=== PATIENT | female | born 1975 | race American Indian/Alaskan Native ===

== ENCOUNTER 2021-04-06 21:56 | Emergency (ER) | payer MEDICAID ==
[~2021-04-06] VITALS: Ht 170.2 cm; Wt 103.2 kg
[~2021-04-06 21:56] MED LIST: HYDR-4383 PO
[2021-04-06 23:46] LABS: URINE HCG NEGATIVE (NEG)
[2021-04-06 23:47] LABS: CLARITY,URINE CLOUDY (Clear); COLOR,URINE RED (Yellow)
[2021-04-06 23:47] LABS: BASOPHILS # (AUTO) 0.1 X10'3 (0-0.2); BASOPHILS % (AUTO) 0.7 % (0-1); EOSINOPHILS % (AUTO) 0.4 % (0-6); HEMATOCRIT 34.1 % (35.0-45.0); HEMOGLOBIN 11.6 g/dl (12.0-16.0); LYMPHOCYTES # (AUTO) 2.3 X10'3 (1.1-4.8); LYMPHOCYTES % (AUTO) 24.6 % (21-51); MEAN CORPUSCULAR HEMOGLOBIN 32.5 PG (27.0-31.0); MEAN CORPUSCULAR VOLUME 95.8 FL (78-98); MEAN PLATELET VOLUME 10.7 FL (7.4-10.4); MONOCYTES # (AUTO) 0.7 X10'3 (0-0.9); MONOCYTES % (AUTO) 7.5 % (2-12); NEUTROPHILS # (AUTO) 6.2 X10'3 (1.8-7.7); NEUTROPHILS % (AUTO) 66.8 % (42-75); PLATELET COUNT 218 X10'3 (140-440); RED BLOOD COUNT 3.56 X10'6 (4.20-5.60); WHITE BLOOD COUNT 9.2 X10'3 (4.5-11.0)
[2021-04-06 23:55] LABS: UA COLLECTION TYPE NON-SPECIFIED
[2021-04-06 23:57] LABS: BACTERIA,URINE NONE SEEN /HPF (Neg); RBC,URINE TNTC /HPF (0-2); SQUAMOUS EPITHELIAL CELL,UR FEW /LPF (FEW); WBC,URINE 0-4 /HPF (0-4)
[2021-04-07 00:03] LABS: ALANINE AMINOTRANSFERASE 37 U/L (12-78); ALBUMIN 3.5 G/DL (3.4-5.0); ALBUMIN/GLOBULIN RATIO 0.9 (1.1-1.5); ALKALINE PHOSPHATASE 70 IU/L (46-116); ANION GAP 14 (8-16); ASPARTATE AMINO TRANSFERASE 34 U/L (10-37); BILIRUBIN,TOTAL 0.6 MG/DL (0.1-1.0); BLOOD UREA NITROGEN 12 MG/DL (7-18); BUN/CREATININE RATIO 13.6 (6.6-38.0); CALCIUM 8.6 MG/DL (8.5-10.1); CHLORIDE 103 MMOL/L (99-107); CREATININE 0.88 MG/DL (0.40-0.90); GLUCOSE 102 MG/DL (70-104); POTASSIUM 3.2 MMOL/L (3.5-5.1); SODIUM 139 MMOL/L (135-145); TOTAL CARBON DIOXIDE 22.4 MMOL/L (24-32); TOTAL PROTEIN 7.4 G/DL (6.4-8.2); eGFR 69 ML/MIN
[2021-04-07] MEDS ORDERED: normal saline 1000ml 1,000 ML IV ONE (02:25)
[2021-04-07 02:54] LABS: D-DIMER 0.24 MG/L FEU (0-0.50)
[2021-04-07] MEDS ORDERED: NORE5TAB3 PO (03:07)
[2021-04-07 03:56] VITALS: BP 167/83
== END 2021-04-07 03:59 | disposition home or self-care (01) ==
LOC: ER 21:57
DX: N93.9 Abnormal uterine and vaginal bleeding, unspecified (principal); R42 Dizziness and giddiness; R06.02 Shortness of breath; R07.9 Chest pain, unspecified; F15.10 Other stimulant abuse, uncomplicated
CPT/HCPCS: 36415; 80053; 81001; 81025; 85025; 85379; 93005; 96360; 99285; J7030

== ENCOUNTER 2022-11-11 17:53 | Inpatient (IN) | payer MEDICAID ==
[~2022-11-11] VITALS: Ht 170.2 cm; Wt 102.0 kg
[~2022-11-11 17:53] MED LIST changes: +NORE5TAB3 PO
[2022-11-11 18:33] LABS: BASOPHILS % (AUTO) 0.3 % (0-1); EOSINOPHILS % (AUTO) 0.2 % (0-6); HEMATOCRIT 45.2 % (35.0-45.0); HEMOGLOBIN 15.4 g/dl (12.0-16.0); LYMPHOCYTES # (AUTO) 1.9 X10'3 (1.1-4.8); LYMPHOCYTES % (AUTO) 14.9 % (21-51); MEAN CORPUSCULAR HEMOGLOBIN 33.5 PG (27.0-31.0); MEAN CORPUSCULAR HGB CONC 34.1 g/dL (33.0-36.5); MEAN CORPUSCULAR VOLUME 98.1 FL (78-98); MONOCYTES # (AUTO) 0.6 X10'3 (0-0.9); MONOCYTES % (AUTO) 4.9 % (2-12); NEUTROPHILS # (AUTO) 10.1 X10'3 (1.8-7.7); NEUTROPHILS % (AUTO) 79.7 % (42-75); PLATELET COUNT 143 X10'3 (140-440); RED BLOOD COUNT 4.61 X10'6 (4.20-5.60); RED CELL DISTRIBUTION WIDTH 15.1 % (11.5-14.5); WHITE BLOOD COUNT 12.6 X10'3 (4.5-11.0)
[2022-11-11 19:03] LABS: TOTAL CARBON DIOXIDE 9.1 MMOL/L (24-32)
[2022-11-11 19:19] LABS: PLATELET ESTIMATE DECREASED
[2022-11-11 19:21] LABS: LARGE PLATELETS FEW
[2022-11-11 19:26] LABS: ALANINE AMINOTRANSFERASE 77 U/L (12-78); ALBUMIN 3.4 G/DL (3.4-5.0); ALBUMIN/GLOBULIN RATIO 0.9 (1.1-1.5); ALKALINE PHOSPHATASE 181 IU/L (46-116); ANION GAP 27 (8-16); ASPARTATE AMINO TRANSFERASE 172 U/L (10-37); BILIRUBIN,TOTAL 1.4 MG/DL (0.1-1.0); BLOOD UREA NITROGEN 6 MG/DL (7-18); BUN/CREATININE RATIO 7.4 (6.6-38.0); CALCIUM 8.2 MG/DL (8.5-10.1); CHLORIDE 102 MMOL/L (99-107); CREATININE 0.81 MG/DL (0.40-0.90); GLUCOSE 108 MG/DL (70-104); MAGNESIUM 1.2 MG/DL (1.5-2.4); POTASSIUM 3.5 MMOL/L (3.5-5.1); SODIUM 138 MMOL/L (135-145); TOTAL PROTEIN 7.3 G/DL (6.4-8.2); eGFR 76 ML/MIN
[2022-11-11] MEDS ORDERED: normal saline 1000ML IV soln IVB ONE (20:55)
[2022-11-11] MEDS ORDERED: ringers solution, lactated 1000ml IV soln IV ONE (20:58)
--- NOTE | 2022-11-11 21:04 | NUR ---
GENERAL GROUP REVIEWED
[2022-11-11] MEDS ORDERED: iohexol 300mg/ml 100ml inj. ONE (21:08)
[2022-11-11] MEDS ORDERED: diatr meglu/diatrizoate 30ml oral sol.-(3 dose) bottle ONE (21:17)
[2022-11-11] MEDS ORDERED: thiamine 100mg/ml 2ml inj. IV ONE (21:40)
[2022-11-11] MEDS ORDERED: LORazepam 1 MG tablet PO ONE (21:40)
[2022-11-11] MEDS ORDERED: folic acid 1mg/0.2ml inj IV ONE (21:48)
[2022-11-11] MEDS ORDERED: magnesium 2GM in 50ml NS 50 ML IV ONE (21:50)
[2022-11-11 22:13] LABS: LIPASE 510 U/L (73-393)
[2022-11-11 22:38] LABS: ABG BASE EXCESS -1.8 mmol/L (-2.0-2.0); ABG HCO3 20.2 mmol/L (22.0-26.0); ABG OXYGEN SATURATION 90.7 % (94-97); ABG PCO2 (T) 27.8 mmHg (32.0-45.0); ABG PO2 (T) 59.2 mmHg (75.0-100.0); ALLEN'S TEST POSITIVE; FCOHb 0.3 % (0.0-3.9); FMetHb 0.2 % (0.0-1.5); FO2Hb 90.2 % (94-97); TOTAL HEMOGLOBIN 14.5 G/dl (12.0-16.0)
[2022-11-11 23:24] LABS: CLARITY,URINE SLIGHTLY CLOUDY (Clear); COLOR,URINE YELLOW (Yellow); GLUCOSE, URINE NEGATIVE (Neg); KETONES,URINE 15 mg/dl (Neg); LEUKOCYTE ESTERASE ,URINE NEGATIVE (Neg); NITRITES, URINE NEGATIVE (Neg); OCCULT BLOOD,URINE NEGATIVE (Neg); PH,URINE 6.5 (4.8-8.0); PROTEIN,URINE NEGATIVE (Neg); UROBILINOGEN,URINE 0.2 E.U/dL (0.2-1.0)
[2022-11-11 23:26] LABS: UA COLLECTION TYPE CLN CATCH MIDSTREAM
[2022-11-11 23:31] LABS: MUCUS STRANDS FEW /LPF (Neg); SQUAMOUS EPITHELIAL CELL,UR MANY /LPF (FEW)
[2022-11-11 23:32] LABS: BACTERIA,URINE NONE SEEN /HPF (Neg); WBC,URINE 0-4 /HPF (0-4)
--- NOTE | 2022-11-12 00:06 | NUR ---
assumed care from ruth carmichael
[2022-11-12] MEDS ORDERED: potassium Cl 20 mEq SR tablet PO PRN (00:10)
[2022-11-12] MEDS ORDERED: magnesium Cl slow-release 64mg tablet PO PRN (00:10)
[2022-11-12] MEDS ORDERED: potassium Cl 40MEQ/1/2NS 520ml 520 ML IV PRN (00:10)
[2022-11-12] MEDS ORDERED: ondansetron/PF 4mg/2ml inj IV PRN (00:10)
[2022-11-12] MEDS ORDERED: magnesium hydroxide 30ml (MOM) UD suspension PO PRN (00:10)
[2022-11-12] MEDS ORDERED: magnesium 4gm in 100ml NS 100 ML IV PRN (00:10)
[2022-11-12] MEDS ORDERED: acetaminophen 325mg tablet PO PRN (00:10)
[2022-11-12] MEDS ORDERED: mag hydrox/Alum hydrox/simeth 30ml oral suspension PO PRN (00:10)
[2022-11-12] MEDS: normal saline 1000ml 1,000 ML IV SCH ×3 (01:05→17:51)
[2022-11-12] MEDS ORDERED: morphine 4 MG/ML inj SYRINge IM PRN (01:35)
[2022-11-12 02:14] VITALS: BP 146/81
[2022-11-12] MEDS: LORazepam 2 mg/ml vial IV PRN ×3 (02:25→22:04)
[2022-11-12] MEDS ORDERED: OMEP40CA21 PO (02:31)
[2022-11-12] MEDS ORDERED: PANT40TA54 PO (02:31)
--- NOTE | 2022-11-12 06:35 | NUR ---
Problems reprioritized. Patient report given, questions answered & plan of care reviewed with MONA SY.
[2022-11-12 06:48] LABS: BASOPHILS # (AUTO) 0.1 X10'3 (0-0.2); EOSINOPHILS # (AUTO) 0.1 X10'3 (0-0.9); MEAN CORPUSCULAR HEMOGLOBIN 33.7 PG (27.0-31.0); MEAN PLATELET VOLUME 10.9 FL (7.4-10.4)
[2022-11-12 06:50] LABS: BASOPHILS % (AUTO) 0.7 % (0-1); EOSINOPHILS % (AUTO) 1.3 % (0-6); HEMATOCRIT 38.3 % (35.0-45.0); HEMOGLOBIN 13.3 g/dl (12.0-16.0); LYMPHOCYTES # (AUTO) 2.1 X10'3 (1.1-4.8); LYMPHOCYTES % (AUTO) 22.5 % (21-51); MEAN CORPUSCULAR HGB CONC 34.7 g/dL (33.0-36.5); MEAN CORPUSCULAR VOLUME 97.4 FL (78-98); MONOCYTES # (AUTO) 0.6 X10'3 (0-0.9); MONOCYTES % (AUTO) 6.4 % (2-12); NEUTROPHILS # (AUTO) 6.4 X10'3 (1.8-7.7); NEUTROPHILS % (AUTO) 69.1 % (42-75); PLATELET COUNT 87 X10'3 (140-440); RED BLOOD COUNT 3.93 X10'6 (4.20-5.60); RED CELL DISTRIBUTION WIDTH 14.5 % (11.5-14.5); WHITE BLOOD COUNT 9.3 X10'3 (4.5-11.0)
--- NOTE | 2022-11-12 07:12 | NUR ---
Patient in room [facility]. I have received report from MONA Trujillo and had the opportunity to ask questions and assume patient care.
[2022-11-12 07:23] VITALS: BP 134/72
[2022-11-12] MEDS ORDERED: docusate sod 100mg capsule PO SCH (08:00)
[2022-11-12] MEDS ORDERED: enoxaparin 40mg/0.4ml syringe SUBCUT SCH (08:00)
[2022-11-12] MEDS: K and/or MAG REPLACEMENT MC SCH ×2 (08:00→20:00)
[2022-11-12] MEDS: multivitamins, therapeutics tablet PO SCH (08:30)
[2022-11-12 09:25] LABS: ALANINE AMINOTRANSFERASE 50 U/L (12-78); ALBUMIN 2.5 G/DL (3.4-5.0); ALBUMIN/GLOBULIN RATIO 0.7 (1.1-1.5); ALKALINE PHOSPHATASE 154 IU/L (46-116); AMYLASE 88 U/L (25-115); ANION GAP 13 (8-16); BILIRUBIN,TOTAL 2.3 MG/DL (0.1-1.0); BLOOD UREA NITROGEN 2 MG/DL (7-18); BUN/CREATININE RATIO 3.2 (6.6-38.0); CHLORIDE 104 MMOL/L (99-107); CREATININE 0.63 MG/DL (0.40-0.90); GLUCOSE 110 MG/DL (70-104); LIPASE 939 U/L (73-393); MAGNESIUM 1.7 MG/DL (1.5-2.4); SODIUM 138 MMOL/L (135-145); TOTAL CARBON DIOXIDE 20.6 MMOL/L (24-32); TOTAL PROTEIN 6.1 G/DL (6.4-8.2); eGFR > 90 ML/MIN
[2022-11-12 09:27] LABS: ASPARTATE AMINO TRANSFERASE 150 U/L (10-37); POTASSIUM 3.3 MMOL/L (3.5-5.1)
[2022-11-12 09:31] LABS: CALCIUM 7.1 MG/DL (8.5-10.1)
[2022-11-12] MEDS: potassium Cl 20 mEq SR tablet PO PRN ×3 (12:10→22:04)
[2022-11-12 12:42] VITALS: BP 123/72
--- NOTE | 2022-11-12 15:35 | NUR ---
Dr. Dumas aware that patient has no antibiotic ordered and stated no need for antibiotic for pancreatitis.
[2022-11-12 18:00] VITALS: BP 135/83
--- NOTE | 2022-11-12 18:15 | NUR ---
Patient in room [facility]. I have received report from MONA Ramirez and had the opportunity to ask questions and assume patient care.
--- NOTE | 2022-11-12 18:24 | NUR ---
Problems reprioritized. Patient report given, questions answered & plan of care reviewed with MONA Lovell.
[2022-11-12 22:00] VITALS: BP 112/70
[2022-11-13] MEDS: normal saline 1000ml 1,000 ML IV SCH ×2 (01:36→10:19)
--- NOTE | 2022-11-13 06:18 | NUR ---
Problems reprioritized. Patient report given, questions answered & plan of care reviewed with MOAN Ramirez.
--- NOTE | 2022-11-13 06:26 | NUR ---
Patient in room [facility]. I have received report from MONA Lovell and had the opportunity to ask questions and assume patient care.
[2022-11-13 06:55] VITALS: BP 137/84
[2022-11-13 07:10] LABS: BASOPHILS % (AUTO) 0.7 % (0-1); EOSINOPHILS # (AUTO) 0.2 X10'3 (0-0.9); EOSINOPHILS % (AUTO) 2.6 % (0-6); HEMATOCRIT 36.9 % (35.0-45.0); HEMOGLOBIN 12.5 g/dl (12.0-16.0); LYMPHOCYTES # (AUTO) 1.4 X10'3 (1.1-4.8); LYMPHOCYTES % (AUTO) 23.6 % (21-51); MEAN CORPUSCULAR HEMOGLOBIN 33.4 PG (27.0-31.0); MEAN CORPUSCULAR HGB CONC 33.9 g/dL (33.0-36.5); MEAN CORPUSCULAR VOLUME 98.5 FL (78-98); MEAN PLATELET VOLUME 11.2 FL (7.4-10.4); MONOCYTES # (AUTO) 0.5 X10'3 (0-0.9); MONOCYTES % (AUTO) 7.7 % (2-12); NEUTROPHILS # (AUTO) 3.9 X10'3 (1.8-7.7); NEUTROPHILS % (AUTO) 65.4 % (42-75); PLATELET COUNT 77 X10'3 (140-440); RED BLOOD COUNT 3.75 X10'6 (4.20-5.60); RED CELL DISTRIBUTION WIDTH 14.7 % (11.5-14.5)
[2022-11-13 07:55] LABS: ALANINE AMINOTRANSFERASE 53 U/L (12-78); ALBUMIN 2.4 G/DL (3.4-5.0); ALBUMIN/GLOBULIN RATIO 0.7 (1.1-1.5); ALKALINE PHOSPHATASE 148 IU/L (46-116); AMYLASE 57 U/L (25-115); ANION GAP 8 (8-16); ASPARTATE AMINO TRANSFERASE 80 U/L (10-37); BLOOD UREA NITROGEN 1 MG/DL (7-18); BUN/CREATININE RATIO 1.6 (6.6-38.0); CALCIUM 7.5 MG/DL (8.5-10.1); CHLORIDE 107 MMOL/L (99-107); CREATININE 0.61 MG/DL (0.40-0.90); FERRITIN 364 NG/ML (8-252); GLUCOSE 96 MG/DL (70-104); LIPASE 319 U/L (73-393); MAGNESIUM 1.8 MG/DL (1.5-2.4); POTASSIUM 3.5 MMOL/L (3.5-5.1); SODIUM 141 MMOL/L (135-145); TOTAL CARBON DIOXIDE 26.2 MMOL/L (24-32); TOTAL PROTEIN 5.9 G/DL (6.4-8.2); eGFR > 90 ML/MIN
[2022-11-13] MEDS: K and/or MAG REPLACEMENT MC SCH (08:00)
[2022-11-13] MEDS: multivitamins, therapeutics tablet PO SCH (08:02)
[2022-11-13 08:32] LABS: % IRON SATURATION 43 % (11-46); IRON 67 UG/DL (49-151); TOTAL IRON BINDING CAPACITY 155 UG/DL (259-388)
[2022-11-13] MEDS: LORazepam 2 mg/ml vial IV PRN (10:59)
[2022-11-13 11:12] LABS: HBSAG SCREEN Negative (Negative); HEP A AB, IGM Negative (Negative)
[2022-11-13 11:40] VITALS: BP 112/50
[2022-11-13 11:44] LABS: LARGE PLATELETS FEW; PLATELET ESTIMATE DECREASED
[2022-11-13] MEDS ORDERED: FOLI1TAB27 PO (13:11)
[2022-11-13] MEDS ORDERED: MULT-25 PO (13:11)
[2022-11-13] MEDS ORDERED: ACET-1008 PO (13:11)
[2022-11-13] MEDS ORDERED: thiamine tablet PO (13:11)
--- NOTE | 2022-11-13 14:57 | NUR ---
Patient alert and oriented in no apparent acute distress. Discussed with patient discharge instructions and new prescriptions. Patient verbalizes understanding of teaching.
--- NOTE | 2022-11-13 15:03 | NUR ---
Patient dc'd with all personal belongings including home meds that were stored in pharmacy. Patient escorted out in wheelchair. Mother transporting patient home.
[2022-11-16] MEDS ORDERED: folic acid 1mg tablet PO SCH (08:00)
[2022-11-16] MEDS ORDERED: thiamine 100mg tablet PO SCH (08:00)
== END 2022-11-13 15:05 | disposition home or self-care (01) | DRG 282 ==
LOC: ER 17:54 → ED HOLD 11-12 00:24 → EDBEDREQ 11-12 01:19 → SUR 3N 11-12 01:30
PROVIDERS: ADMIT Family Medicine; ATTEND Internal Medicine
PROC: BW211ZZ Computerized Tomography (CT Scan) of Abdomen and Pelvis using Low Osmolar Contrast (ICD-10-PCS; principal; 2022-11-11)
DX: K85.20 Alcohol induced acute pancreatitis without necrosis or infection (principal); E87.29 Other acidosis; D69.59 Other secondary thrombocytopenia; D75.89 Other specified diseases of blood and blood-forming organs; K76.0 Fatty (change of) liver, not elsewhere classified; E87.6 Hypokalemia; E83.42 Hypomagnesemia; F15.90 Other stimulant use, unspecified, uncomplicated; F10.20 Alcohol dependence, uncomplicated; Z80.0 Family history of malignant neoplasm of digestive organs; Z80.3 Family history of malignant neoplasm of breast; Z87.891 Personal history of nicotine dependence; Z79.899 Other long term (current) drug therapy; Z71.41 Alcohol abuse counseling and surveillance of alcoholic
CPT/HCPCS: 36415; 36600; 71045; 74177; 76700; 80053; 80074; 81001; 82150; 82607; 82728; 82803; 83540; 83550; 83605; 83690; 83735; 83880; 84484; 85008; 85018; 85025; 87040; 87081; 99285; A6258; G0378; J2060; J3411; J3475; J3490; J7030; J7120; Q9963; Q9967

== ENCOUNTER 2025-06-18 13:10 | Emergency (ER) | payer MEDICAID, OTHER ==
[~2025-06-18] VITALS: Ht 170.2 cm; Wt 106.8 kg
[~2025-06-18 13:10] MED LIST changes: +FOLI1TAB27 PO; -HYDR-4383 PO; +MULT-25 PO; -NORE5TAB3 PO; +OMEP40CA21 PO; +thiamine tablet PO
--- NOTE | 2025-06-18 13:17 | ELECTROCARDIOGRAPH REPORT ---
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 Sukumar Shell Measurements Intervals [place] Rate: 94 P: 30 [place]: 176 QRS: 56 QRSD: 91 T: 34 QT: 365 QTc: 457 Interpretive Statements Sinus rhythm Low voltage, precordial leads Borderline ST depression, lateral leads Electronically Signed On 06-18-2025 17:54:[address] Sukumar Shell Please click the below link to view image of tracing.
--- NOTE | 2025-06-18 13:21 | Physician Documentation ---
History of Present Illness ~ Stated Complaint: CHEST PAIN Time Seen by MD: 14:28 OK to notify your PCP?: Yes Primary Medical Doctor: Santana Lyons Source: patient Mode of Arrival: POV Exam Limitations: no limitations HPI 50-year-old female presents with left-sided chest pain which is stabbing in nature and radiating up her left neck. She is also having some left arm tightness and pain as well. She states that this pain has been ongoing for weeks, has chose to ignore it as she needs to continue working. She has no cardiac history. No medications taken for her symptoms. 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 States he she has reduced her alcohol intake from large amounts of vodka daily down to 4-8 trulys daily. She states she had has not had pancreatitis symptoms since the last time she was here Denies any drugs or smoking Day of Onset: Jun 18, 2025 Medication Reconciliation Allergies: Coded Allergies: No Known Allergies (Unverified , 06/18/25) Scheduled Folic Acid* (Folic Acid*), 1 MG PO DAILY Multivitamin with Folic Acid (Thera Tablet), 1 EACH PO Q24H Omeprazole (Prilosec), 1 CAP PO DAILY, (Reported) [thiamine tablet], 100 MG PO DAILY Past Medical History Past Medical History: No Pertinent History Past Surgical History: noncontributory Patient History: FH: breast cancer FH: colon cancer Alcohol Use: Heavy Drug Use: methamphetamine Review of Systems All Other Systems at this time: Reviewed and Negative Physical Exam Vital Signs: RN Vital Signs have been reviewed: Yes Pulse Oximetry Reflects: adequate oxygenation Physical Exam General: Alert, no distress. Respiratory: No respiratory distress, equal chest rise and fall. Cardiovascular: Regular rate and rhythm. Gastrointestinal: Nondistended. Tender to the left upper anterior intercostal regions via palpation Neurologic: Oriented x4. Psychiatric: Normal mood and affect. Skin: Normal color, warm and dry. Progress Results/Orders Results/Orders Vital Signs 06/18/25 06/18/25 06/18/25 06/18/25 13:15 13:51 13:59 15:00 Temp 97.1 Pulse 82 81 73 Resp 18 16 12 B/P (MAP) 147/88 133/79 (97) 117/73 (88) Pulse Ox 98 98 97 O2 Flow Rate 0 0 0 Laboratory Tests Test 06/18/25 13:31 06/18/25 15:17 White Blood Count 5.9 Red Blood Count 4.48 Hemoglobin 13.9 Hematocrit 40.6 Mean Corpuscular Volume 90.6 Mean Corpuscular Hemoglobin 31.0 Mean Corpuscular Hemoglobin Concent 34.3 Red Cell Distribution Width 14.5 Platelet Count 289 Mean Platelet Volume 10.3 Neutrophils (%) (Auto) 57.1 Lymphocytes (%) (Auto) 35.2 Monocytes (%) (Auto) 6.2 Eosinophils (%) (Auto) 0.4 Basophils (%) (Auto) 1.1 H Neutrophils # (Auto) 3.4 Lymphocytes # (Auto) 2.1 Monocytes # (Auto) 0.4 Eosinophils # (Auto) 0.0 Basophils # (Auto) 0.1 CBC Comment Sodium Level 141 Potassium Level 3.5 Chloride Level 104 Carbon Dioxide Level 20.6 L Anion Gap 16 Blood Urea Nitrogen 3 L Creatinine 0.50 Estimated GFR/1.73 m2 > 90 BUN/Creatinine Ratio 6.0 L Glucose Level 84 Calcium Level 8.7 Total Bilirubin 0.9 Direct Bilirubin 0.2 Aspartate Amino Transf (AST/SGOT) 36 Alanine Aminotransferase (ALT/SGPT) 28 Alkaline Phosphatase 134 H Troponin I High Sensitivity 17 Pro-B-Type Natriuretic Peptide 46 Total Protein 7.8 Albumin 3.8 Globulin 4.0 Albumin/Globulin Ratio 1.0 L Chemistry Comments Medical Decision Making Findings This patient who has a history of alcoholism was initially concerning for potential pancreatitis. She asserts that the pain she has in her intercostal region is nothing like when she has had pancreatitis before. Addition she reports decreasing her alcohol intake. Her laboratory values are reassuring lipase is well within normal limits and her liver enzymes and bilirubin do not show any signs of concern I did give her shot of Toradol to help with suspected costochondritis. At this time I am going to discharge her for outpatient therapy. Did offer CT scan, however she declined as her symptoms have . resolved Differential Dx:Considerations: Include: angina, aortic dissection, chest wall pain, cholelithiasis, CHF, costochondritis, esophageal reflux/spasm, gastritis, herpes zoster, myocardial infarction, pericarditis, pleuritis, pancreatitis, pneumonia, pneumothorax, pulmonary embolus, other Departure Disposition: 01 HOME / SELF CARE / HOMELESS Impression: Primary Impression: Tenderness of chest wall Condition: Stable Discharge Instructions: Nonspecific Chest Pain, Adult Referrals: NO PRIMARY CARE PROVIDER (PCP) Additional Comment Medical Screen Exam This patient recieved a medical screening examination. After reviewing the individual's medical complaints with presenting symptoms and performing an appropriate physical examination, it was determined that no immediate life- threatening emergency medical condition is present. This individual is also not a women having contractions. Signature Scribe Signature: h Attestation: Scribed for Fani Toney Merchandising Execution Manager by Fani Dwyer NP . 06/18/25 15:44 [place] Jun 18, 2025 13:21 FANI OTNEY NP Jun 18, 2025 14:53
--- NOTE | 2025-06-18 13:43 | RADIOLOGY REPORT ---
CHEST RADIOGRAPH Indication: CP Technique: Single frontal view of the chest was obtained Comparison: CHEST,SINGLE VIEW on DOS: 11/11/22 FINDINGS: Lines and Tubes: None Lungs: No focal consolidation. Pleura: No effusion. No pneumothorax. Cardiomediastinal contours: Unremarkable Bones: No acute osseous abnormality. IMPRESSION: No acute cardiopulmonary disease.
[2025-06-18 14:00] LABS: MEAN PLATELET VOLUME 10.3 FL (7.4-10.4); RED CELL DISTRIBUTION WIDTH 14.5 % (11.5-14.5)
[2025-06-18 14:22] LABS: CREATININE 0.50 MG/DL (0.40-0.90); PRO BRAIN NATRIURETIC PEPTIDE 46 PG/ML (0-125); TOTAL CARBON DIOXIDE 20.6 MMOL/L (24-32); eCRCL 131 ML/MIN; eGFR > 90 ML/MIN
[2025-06-18] MEDS: ketorolac trometh 30MG/ML vial 30 MG/ML VIAL IV ONE (16:10)
[2025-06-18 16:50] VITALS: BP 117/73; PULSE 73; RESP 12; TEMP 97.1; O2SAT 97
== END 2025-06-18 16:10 | disposition home or self-care (01) ==
LOC: ER 13:11
DX: R07.89 Other chest pain (principal); F10.90 Alcohol use, unspecified, uncomplicated; Y90.9 Presence of alcohol in blood, level not specified; Z79.899 Other long term (current) drug therapy
CPT/HCPCS: 36415; 71045; 80048; 80076; 83880; 84484; 85025; 93005; 96374; 99285; J1885; L0172